=== PATIENT | female | born 1990 | race Caucasian/White ===

== ENCOUNTER 2017-02-15 09:57 | Observation (INO) | payer SELFPAY ==
[2017-02-15 10:02] VITALS: BMI 25.0
--- NOTE | 2017-02-15 11:18 | DR.GENAD ---
HPI - PCP Primary Care Physician: nfd - Complaint/Symptoms Chief Complaint Doctors Comments: Patient is complaining of right lower quadrant pain for the past 2-3 days getting worst today with fever, chills, nausea and vomiting. She denies dysuria, hematuria, magdalena or any recent trauma. LMP 18 January 2017 and she is not on any contraceptives. states she does not have a local doctor. Chief Complaint:: patient stated she started having right sided pain 3 days ago last night it got worse with nausea and chills. - Nurses notes reviewed Nurses Notes Review: Yes - Source History Provided: Patient - Mode of Arrival Mode of Arrival: Ambulatory - Timing Onset of Chief Complaint: 02/13/17 Came on: Gradually - Duration Duration: Constant How lon Duration: Days - Location Location: RLQ tenderness - Severity Severity: Moderate - Modifying Factors Worsens:: movement Improves:: movement PMH - PMH Past Medical History: No Past Surgical History: Yes Surgical History: , Cholecystectomy - Family History History of Family Medical Conditions: No - Social History Does patient currently use any type of tobacco product: No Have you used tobacco products in the last 12 months: No Type of Tobacco Use: None Does any household member use tobacco: No Alcohol Use: None Do you use any recreational Drugs:: No Lives With: Family Lives Where: Home - infectious screening In the last 2 months have you had wt loss of >10#?: NO Have you had fever, night sweats or hemotysis?: No Have you traveled outside the country in the last 6 months?: No Isolation: Standard ROS - Review of Systems Constitutional: No Symptoms Reported, Chills, Fever. negative: See HPI, Diaphoresis, Malaise, Weakness, Irritable, Fatigue, Loss of Appetite, Other Eyes: No Symptoms Reported ENTM: No Symptoms Reported. negative: See HPI, Ear Pain, Ear Discharge, Pulling on Ears, Hearing Loss, Nose Pain, Nose Discharge, Epistaxis, Nose Congestion, Mouth Pain, Mouth Swelling, Loose Teeth, Drooling, Throat Pain, Throat Swelling, Ear Foreign Body Respiratoy: No Symptoms Reported. negative: See HPI, Productive Cough, Non- Productive Cough, Moist Cough, Dry Cough, Hacking Cough, Barking Cough, Brassy Cough, Orthopnea, Short of Breath, Stridor, Wheezing, Hemoptysis, Other Cardiovascular: No Symptoms Reported. negative: See HPI, Chest Pain, Edema, Palpitations, Syncope, Cyanosis, Skin Mottling, Other Gastrointestinal/Abdominal: No Symptoms Reported, Abdominal Pain, Nausea, Vomiting. negative: See HPI, Constipation, Diarrhea, Food Intolerance, Other Genitourinary: No Symptoms Reported. negative: See HPI (nocturia x2), Discharge , Dysuria, Frequency, Hematuria, Pain, Bleeding, Other Neurological: No Symptoms Reported. negative: See HPI, Anxiety, Depressed, Emotional Problems, Headache, Numbness, Paresthesia, Pre-existing Deficit, Seizure, Tingling, Tremors, Weakness, Dizziness, Problems Walking, Speech Problem, Other Musculoskeletal: No Symptoms Reported Integumentary: No Symptoms Reported. negative: See HPI, Change in Color, Change in Hair/Nails, Dryness, Lesions, Lumps, Rash, Itching, Wound, Bruises, Juandice, Other Hematologic/Lymphatic: No Symptoms Reported Endocrine: No Symptoms Reported Psychiatric: No Symptoms Reported PE - Vital Signs Vitals: Temperature 99.9 F Pulse Rate 111 Respiratory Rate 18 Blood Pressure 114/82 O2 Sat by Pulse Oximetry 98 - General Limitations: No Limitations General Appearance: Alert, In Distress (moderate) - Head Head Exam: Normal Inspection, Atraumatic, Normocephalic - Eyes Eye exam: Normal Appearance, PERRL, EOMI. negative: Scleral Icterus, Conjunctival Injection, Nystagmus, Miosis, Mydrasis, Periorbital Swelling, Periorbital Tenderness, Other - ENT ENT Exam: Normal Exam, Normal Oropharynx, Normal External Ear Exam, Mucous Membranes Moist, TM's Normal Bilaterally External Ear Exam: Normal External Inspection TM/Canal Exam: Bilateral Normal Nose Exam: Normal Nose Exam Mouth Exam: Normal Inspection Throat Exam: Normal Inspection. negative: Tonsillar Erythema, Tonsillomegaly, Tonsillar Exudate, R Peritonsillar Mass, L Peritonsillar Mass, Muffled Voice, Other - Neck Neck Exam: Normal Inspection, Full ROM, Trachea Midline. negative: Tenderness, Meningismus, Lymphadenopathy, Thyromegaly, Other - Chest Chest Inspection: Normal Inspection, Symmetric Chest Wall Rise - Respiratory Respiratory Exam: Normal Lung Sounds Bilat Respiratory Exam: Bilateral Clear to Auscultation - Cardiovascular Cardiovascular Exam: Regular Rate, Normal Rhythm, Normal Heart Sounds - Abdominal Exam Abdominal Exam: Normal Inspection, Normal Bowel Sounds, Soft, Tenderness (RLQ tenderness; suprapubic tenderness; healed RUQ surgical scar), Dimnished Bowel Sounds Abdominal Tenderness: RUQ, RLQ, Moderate - Extremities Extremities Exam: Normal Inspection, Full ROM, Normal Capillary Refill. negative: Tenderness, Edema, Joint Swelling, Calf Tenderness, Other - Back Back Exam: Normal Inspection, Full ROM. negative: Tenderness, (R) CVA Tenderness, (L) CVA Tenderness, Muscle Spasm, Paraspinal Tenderness, Vertebral Tenderness, Rashes, (R) Sciatic Notch Tenderness, (L) Sciatic Notch Tendern, (R ) Straight Leg Raise, (L) Straight Leg Raise, Other - Neurologic Neurological Exam: Alert, Oriented X3, CN II-XII Intact, Reflexes Normal. negative: Normal Gait (gait not tested) - Psychiatric Psychiatric Exam: Normal Affect, Normal Mood - Skin Skin Exam: Warm, Dry, Intact, Normal Color Course - Consultation Called: 16:41 Call Returned: 16:41 (Dr. Boothe to admit to hospitalist) Consultation Comments: 1750: Dr. Brunner called and the patient discussed. Will admit to [facility] for evaluation and consult from Dr. Boothe. - Education/Counseling Education/Counseling: Patient, Family Educated On: Treatment, Diagnosis, Prognosis, Needs for Follow Up ROR - Labs Reviewed Laboratory Results Reviewed?: Yes (all labs and x-ray results reviewed and discussed with patient and family) Result Diagrams: 02/15/17 11:15 02/15/17 11:15 Laboratory: WBC 7.5 X10^3/uL (3.6-10.0) 02/15/17 11:15 RBC 4.31 X10^6/uL (3.5-5.4) 02/15/17 11:15 Hgb 12.9 g/dL (12.0-16.0) 02/15/17 11:15 Hct 36.2 % (36.0-47.0) 02/15/17 11:15 MCV 84.1 fL (80.0-100.0) 02/15/17 11:15 MCH 30.0 pg (27.0-34.0) 02/15/17 11:15 MCHC 35.7 g/dL (33.0-35.0) H 02/15/17 11:15 RDW 12.2 % (11.6-16.5) 02/15/17 11:15 Plt Count 154 X10^3/uL (150.0-450.0) 02/15/17 11:15 MPV 8.3 fL (7.4-11.0) 02/15/17 11:15 Neut % 84.3 % (42.0-75.0) H 02/15/17 11:15 Lymph % 9.8 % (21.0-51.0) L 02/15/17 11:15 Free[place] % 5.5 % (0.0-13.0) 02/15/17 11:15 Eos % 0.2 % (0.9-2.9) L 02/15/17 11:15 Baso % 0.2 % (0.2-1.0) 02/15/17 11:15 Neut # 6.3 x10^3/uL (2.2-4.8) H 02/15/17 11:15 Lymph # 0.7 X10^3/uL (1.3-2.9) L 02/15/17 11:15 Freeborn # 0.4 x10^3/uL (0.3-0.8) 02/15/17 11:15 Eos # 0.0 x10^3/uL (0.0-0.2) 02/15/17 11:15 Baso # 0.0 X10^3/uL (0.0-0.1) 02/15/17 11:15 Absolute Nucleated RBC 0.0 /100WBC 02/15/17 11:15 Sodium 139 mmol/L (136-145) 02/15/17 11:15 Corrected Sodium TNP 02/15/17 11:15 Potassium 3.6 mmol/L (3.5-5.1) 02/15/17 11:15 Chloride 104 mmol/L (98-107) 02/15/17 11:15 Carbon Dioxide 27.3 mmol/L (21-32) 02/15/17 11:15 BUN 7 mg/dL (7-18) 02/15/17 11:15 Creatinine 0.75 mg/dL (0.55-1.02) 02/15/17 11:15 Est GFR (MDRD) Af Amer > 60 (>60) 02/15/17 11:15 Est GFR (MDRD) Non-Af > 60 (>60) 02/15/17 11:15 Glucose 89 mg/dL (65-99) 02/15/17 11:15 Calcium 8.5 mg/dL (8.5-10.1) 02/15/17 11:15 Corrected Calcium TNP 02/15/17 11:15 Total Bilirubin 2.00 mg/dL (0.2-1.0) H 02/15/17 11:15 AST 24 Units/L (15-37) 02/15/17 11:15 ALT 34 Units/L (12-78) 02/15/17 11:15 Alkaline Phosphatase 95 Units/L (46-116) 02/15/17 11:15 Total Protein 7.9 g/dL (6.4-8.2) 02/15/17 11:15 Albumin 3.8 g/dL (3.4-5.0) 02/15/17 11:15 Globulin 4.1 g/dL (2.5-4.5) 02/15/17 11:15 Albumin/Globulin Ratio 0.9 Ratio (1.1-2.1) L 02/15/17 11:15 Amylase 20 Units/L (25-115) L 02/15/17 11:15 Lipase 73 Units/L (73-393) 02/15/17 11:15 HCG, Qual Negative <10 mIU/mL 02/15/17 11:15 Specimen Type Clean catch urine 02/15/17 11:33 Urine Color Yellow (YELLOW) 02/15/17 11:33 Urine Appearance Hazy (CLEAR) 02/15/17 11:33 Urine pH 8.0 (5.0 - 8.0) 02/15/17 11:33 Ur Specific [place] 1.010 (1.000-1.030) 02/15/17 11:33 Urine Protein Negative (NEGATIVE) 02/15/17 11:33 Urine Glucose (UA) Negative (NEGATIVE) 02/15/17 11:33 Urine Ketones Negative (NEGATIVE) 02/15/17 11:33 Urine Occult Blood 1+ (NEGATIVE) 02/15/17 11:33 Urine Nitrite Negative (NEGATIVE) 02/15/17 11:33 Urine Bilirubin Negative (NEGATIVE) 02/15/17 11:33 Urine Urobilinogen 1+ (NORMAL) 02/15/17 11:33 Ur Leukocyte Esterase 1+ (NEGATIVE) 02/15/17 11:33 Urine RBC 0-2 /HPF (NEGATIVE) 02/15/17 11:33 Urine WBC 0-2 /HPF (NEGATIVE) 02/15/17 11:33 Ur Squamous Epith Cells Negative /HPF (NEGATIVE) 02/15/17 11:33 Urine Bacteria Trace /HPF (NEGATIVE) 02/15/17 11:33 Ur Culture Indicated? No/not indicated 02/15/17 11:33 H. pylori IgG Antibody Negative (NEGATIVE) 02/15/17 11:15 - XRAY XRAY Interpreted by: Radiologist (CT abdomen: Tubular structure within the right lower quadrant thickened velazquez 7..0 cm findings represent mildly inflamed bordeerl) - Diagnosis Discharge Problem: abdominal pain r/o appendicitis, Probable early appendicitis - Discharge Plan Disposition: 09 ADMITTED INPATIENT Condition: Stable - Follow ups/Referrals Follow ups/Referrals: NFD,None [Primary Care Provider] - 3 days - Instructions
[2017-02-15 11:26] LABS: BASOPHILS % (AUTO) 0.2 % (0.2-1.0); EOSINOPHILS % (AUTO) 0.2 % (0.9-2.9); HEMATOCRIT 36.2 % (36.0-47.0); HEMOGLOBIN 12.9 g/dL (12.0-16.0); LYMPHOCYTES # (AUTO) 0.7 X10^3/uL (1.3-2.9); LYMPHOCYTES % (AUTO) 9.8 % (21.0-51.0); MEAN CORPUSCULAR HGB CONC 35.7 g/dL (33.0-35.0); MEAN CORPUSCULAR VOLUME 84.1 fL (80.0-100.0); MEAN PLATELET VOLUME 8.3 fL (7.4-11.0); MONOCYTES # (AUTO) 0.4 x10^3/uL (0.3-0.8); MONOCYTES % (AUTO) 5.5 % (0.0-13.0); NEUTROPHILS # (AUTO) 6.3 x10^3/uL (2.2-4.8); NEUTROPHILS % (AUTO) 84.3 % (42.0-75.0); PLATELET COUNT 154 X10^3/uL (150.0-450.0); RED BLOOD COUNT 4.31 X10^6/uL (3.5-5.4); RED CELL DISTRIBUTION WIDTH 12.2 % (11.6-16.5); WHITE BLOOD COUNT 7.5 X10^3/uL (3.6-10.0)
[2017-02-15 11:40] LABS: ALANINE AMINOTRANSFERASE 34 Units/L (12-78); ALBUMIN 3.8 g/dL (3.4-5.0); ALKALINE PHOSPHATASE 95 Units/L (46-116); AMYLASE 20 Units/L (25-115); ASPARTATE AMINO TRANSFERASE 24 Units/L (15-37); BLOOD UREA NITROGEN 7 mg/dL (7-18); CALCIUM 8.5 mg/dL (8.5-10.1); CARBON DIOXIDE 27.3 mmol/L (21-32); CHLORIDE 104 mmol/L (98-107); CREATININE 0.75 mg/dL (0.55-1.02); GLUCOSE 89 mg/dL (65-99); LIPASE 73 Units/L (73-393); SODIUM 139 mmol/L (136-145); TOTAL PROTEIN 7.9 g/dL (6.4-8.2); eGFR BLACK RACES > 60 (>60); eGFR NON BLACK RACES > 60 (>60)
[2017-02-15 11:42] LABS: BILIRUBIN,URINE NEGATIVE (NEGATIVE); BLOOD/HEMOGLOBIN,URINE 1+ (NEGATIVE); GLUCOSE, URINE NEGATIVE (NEGATIVE); KETONES,URINE NEGATIVE (NEGATIVE); LEUKOCYTE ESTERASE ,URINE 1+ (NEGATIVE); NITRITES,URINE NEGATIVE (NEGATIVE); PROTEIN,URINE NEGATIVE (NEGATIVE); UROBILINOGEN,URINE 1+ (NORMAL)
[2017-02-15 11:48] LABS: APPEARANCE,URINE HAZY (CLEAR); BACTERIA,URINE TRACE /HPF (NEGATIVE); COLOR,URINE YELLOW (YELLOW); RBC,URINE 0-2 /HPF (NEGATIVE); SQUAMOUS EPITHELIAL CELL,UR NEGATIVE /HPF (NEGATIVE)
[2017-02-15 11:49] LABS: SERUM PREGNANCY TEST, QUAL NEGATIVE <10 mIU/mL
[2017-02-15] MEDS ORDERED: NS 100 ML IV 100 ML IV ONE (13:15)
--- NOTE | 2017-02-15 14:18 | CT ---
HISTORY: Right-sided abdominal pain with nausea and vomiting Study: CT abdomen and pelvis with contrast Comparison: None Technique: Multiple axial images of the abdomen and pelvis were obtained from the lung bases to the pubic symph ysis with the administration of IV contrast. Findings: The visualized portions of the lung bases are unremarkable. The liver, spleen, pancreas, adrenals, and kidneys are unremarkable in appearance. No CT evidence of hydronephrosis is identified . The appendix is not definitely visualized. No significant inflammatory changes are appreciated wit hin the pericecal region. Surgical clips are noted within the gallbladder fossa. The urinary bladder is grossly unremarkable. The uterus is somewhat heterogeneous in appearance which may reflect timin g of the menstrual cycle however underlying fibroids cannot be excluded. A small amount of free flui d is suspected within the pelvis. There is a questionable right ovarian/adnexal cyst. Scattered stoo l and gas are seen throughout the colon to the level of the rectum. IMPRESSION: 1. Nonspecific heterogeneous appearance of the uterus with a questionable right ovarian/adnexal cyst which may be further evaluated with pelvic ultrasound as clinically indicated. 2. Other findings as noted above. Reported By:
[2017-02-15] MEDS ORDERED: DEMEROL INJ IVP ONE (16:10)
[2017-02-15] MEDS ORDERED: ROCEPHIN VIAL 1 GM 1 GM in NS 50 ML IV + SPIKE MINIBAG* 50 ML IV ONE (16:11)
[2017-02-15] MEDS ORDERED: ZOFRAN INJ 4 MG VIAL IVP ONE (16:11)
[2017-02-15] MEDS ORDERED: ZOFRAN INJ 4 MG VIAL ONE (16:26)
[2017-02-15] MEDS ORDERED: DEMEROL INJ ONE (16:27)
[2017-02-15] MEDS ORDERED: ROCEPHIN 1 GM IV PREMIX * OUT OF STOCK 50 ML IV ONE (16:38)
[2017-02-15] MEDS ORDERED: NS 1000 ML 1,000 ML ONE (16:39)
[2017-02-15] MEDS ORDERED: NS 100 ML IV + SPIKE MINIBAG* 100 ML IV ONE (16:39)
[2017-02-15] MEDS ORDERED: ZOSYN VIAL 3.375 GM IV ONE (16:40)
[2017-02-15] MEDS ORDERED: ZOSYN VIAL 3.375 GM 3.375 GM in NS 100 ML IV + SPIKE MINIBAG* 100 ML IV ONE (18:02)
[2017-02-15] MEDS ORDERED: ZOFRAN INJ 4 MG VIAL IVP PRN ×2 (18:04→19:51)
[2017-02-15] MEDS ORDERED: PEPCID 20 MG IV PREMIX* 20 MG/50 ML BAG IV PRN (18:04)
[2017-02-15] MEDS ORDERED: FENTANYL INJ 250 mcg ONE (18:40)
[2017-02-15] MEDS ORDERED: XYLOCAINE-MPF 1% ONE (19:06)
[2017-02-15] MEDS ORDERED: MARCAINE 0.25% WITH EPI IJ ONE (19:06)
[2017-02-15] MEDS: LR 1000 ML IV 1,000 ML IV ONE ×2 (19:35→19:40)
[2017-02-15] MEDS ORDERED: PHENERGAN INJ 25 MG IVP PRN (19:51)
[2017-02-15] MEDS ORDERED: BENADRYL INJ 50 MG VIAL IVP PRN (19:51)
[2017-02-15] MEDS ORDERED: REGLAN INJ 10 MG VIAL IVP PRN (19:51)
[2017-02-15] MEDS ORDERED: DILAUDID INJ IVP PRN (19:51)
[2017-02-15] MEDS: PERCOCET TAB 5/325 MG PO PRN (21:14)
[2017-02-15] MEDS: NS 1000 ML 1,000 ML IV SCH (22:16)
[2017-02-15] MEDS: MORPHINE SULFATE INJ 2 MG IVP PRN (22:17)
[2017-02-16] MEDS: NS 1000 ML 1,000 ML IV SCH ×2 (03:39→11:44)
[2017-02-16] MEDS: MORPHINE SULFATE INJ 2 MG IVP PRN (03:39)
[2017-02-16 06:11] LABS: BLOOD UREA NITROGEN 7 mg/dL (7-18); CALCIUM 8.1 mg/dL (8.5-10.1); CARBON DIOXIDE 28.3 mmol/L (21-32); CHLORIDE 104 mmol/L (98-107); CREATININE 0.82 mg/dL (0.55-1.02); GLUCOSE 76 mg/dL (65-99); SODIUM 139 mmol/L (136-145); eGFR BLACK RACES > 60 (>60); eGFR NON BLACK RACES > 60 (>60)
[2017-02-16 06:23] LABS: BASOPHILS % (AUTO) 0.4 % (0.2-1.0); EOSINOPHILS % (AUTO) 0.2 % (0.9-2.9); HEMATOCRIT 34.1 % (36.0-47.0); LYMPHOCYTES # (AUTO) 0.9 X10^3/uL (1.3-2.9); LYMPHOCYTES % (AUTO) 14.7 % (21.0-51.0); MEAN CORPUSCULAR HEMOGLOBIN 29.9 pg (27.0-34.0); MEAN CORPUSCULAR HGB CONC 35.3 g/dL (33.0-35.0); MEAN CORPUSCULAR VOLUME 84.7 fL (80.0-100.0); MEAN PLATELET VOLUME 8.9 fL (7.4-11.0); MONOCYTES # (AUTO) 0.4 x10^3/uL (0.3-0.8); MONOCYTES % (AUTO) 5.9 % (0.0-13.0); NEUTROPHILS # (AUTO) 4.8 x10^3/uL (2.2-4.8); NEUTROPHILS % (AUTO) 78.8 % (42.0-75.0); PLATELET COUNT 123 X10^3/uL (150.0-450.0); RED BLOOD COUNT 4.03 X10^6/uL (3.5-5.4); RED CELL DISTRIBUTION WIDTH 12.2 % (11.6-16.5)
[2017-02-16] MEDS: PERCOCET TAB 5/325 MG PO PRN (07:03)
--- NOTE | 2017-02-16 09:31 | PCM.PROG ---
Progress Note - Progress Note for Day of Date: 02/16/17 - Subjective Subjective: Tolerating diet. (-) N/V. (+) OOB. RLQ pain resolved. Admits to post-op "soreness". - Past Medical Family Social History Allergies: Allergies No Known Drug Allergies Allergy (Verified 02/15/17 09:58) - Vital Signs and I&O's Vital Signs: Temperature 99.3 F Pulse Rate [Bilateral Radial] 92 Pulse Rate 94 Respiratory Rate 18 Blood Pressure [Left Arm] 113/62 Blood Pressure 116/64 O2 Sat by Pulse Oximetry 97 Intake and Output: Intake & Output 02/13/17 02/14/17 02/15/17 02/16/17 11:59 11:59 11:59 11:59 Intake Total 112 Output Total 350 Balance -238 - Physical Exam Oriented: Normal Eyes: Normal Respiratory: Normal Cardiovascular: Normal Auscultation: Bowel Sounds: Normal Palpation: Normal Tenderness: Diffuse (Approp. TTP ) Skin: Normal (Dressings C/D/I.) Psychiatric: Normal Mood Description: Calm Speech Pattern: Clear, Appropriate - Laboratory and Diagnostics Result Diagrams: 02/16/17 03:33 02/16/17 03:40 Labs: Laboratory WBC 6.0 X10^3/uL (3.6-10.0) 02/16/17 03:33 RBC 4.03 X10^6/uL (3.5-5.4) 02/16/17 03:33 Hgb 12.0 g/dL (12.0-16.0) 02/16/17 03:33 Hct 34.1 % (36.0-47.0) L 02/16/17 03:33 MCV 84.7 fL (80.0-100.0) 02/16/17 03:33 MCH 29.9 pg (27.0-34.0) 02/16/17 03:33 MCHC 35.3 g/dL (33.0-35.0) H 02/16/17 03:33 RDW 12.2 % (11.6-16.5) 02/16/17 03:33 Plt Count 123 X10^3/uL (150.0-450.0) L 02/16/17 03:33 MPV 8.9 fL (7.4-11.0) 02/16/17 03:33 Neut % 78.8 % (42.0-75.0) H 02/16/17 03:33 Lymph % 14.7 % (21.0-51.0) L 02/16/17 03:33 Gordon % 5.9 % (0.0-13.0) 02/16/17 03:33 Eos % 0.2 % (0.9-2.9) L 02/16/17 03:33 Baso % 0.4 % (0.2-1.0) 02/16/17 03:33 Neut # 4.8 x10^3/uL (2.2-4.8) 02/16/17 03:33 Lymph # 0.9 X10^3/uL (1.3-2.9) L 02/16/17 03:33 Gordon # 0.4 x10^3/uL (0.3-0.8) 02/16/17 03:33 Eos # 0.0 x10^3/uL (0.0-0.2) 02/16/17 03:33 Baso # 0.0 X10^3/uL (0.0-0.1) 02/16/17 03:33 Absolute Nucleated RBC 0.0 /100WBC 02/16/17 03:33 Sodium 139 mmol/L (136-145) 02/16/17 03:40 Corrected Sodium TNP 02/16/17 03:40 Potassium 3.6 mmol/L (3.5-5.1) 02/16/17 03:40 Chloride 104 mmol/L (98-107) 02/16/17 03:40 Carbon Dioxide 28.3 mmol/L (21-32) 02/16/17 03:40 BUN 7 mg/dL (7-18) 02/16/17 03:40 Creatinine 0.82 mg/dL (0.55-1.02) 02/16/17 03:40 Est GFR (MDRD) Af Amer > 60 (>60) 02/16/17 03:40 Est GFR (MDRD) Non-Af > 60 (>60) 02/16/17 03:40 Glucose 76 mg/dL (65-99) 02/16/17 03:40 Calcium 8.1 mg/dL (8.5-10.1) L 02/16/17 03:40 Corrected Calcium TNP 02/15/17 11:15 Total Bilirubin 2.00 mg/dL (0.2-1.0) H 02/15/17 11:15 AST 24 Units/L (15-37) 02/15/17 11:15 ALT 34 Units/L (12-78) 02/15/17 11:15 Alkaline Phosphatase 95 Units/L (46-116) 02/15/17 11:15 Total Protein 7.9 g/dL (6.4-8.2) 02/15/17 11:15 Albumin 3.8 g/dL (3.4-5.0) 02/15/17 11:15 Globulin 4.1 g/dL (2.5-4.5) 02/15/17 11:15 Albumin/Globulin Ratio 0.9 Ratio (1.1-2.1) L 02/15/17 11:15 Amylase 20 Units/L (25-115) L 02/15/17 11:15 Lipase 73 Units/L (73-393) 02/15/17 11:15 HCG, Qual Negative <10 mIU/mL 02/15/17 11:15 Specimen Type Clean catch urine 02/15/17 11:33 Urine Color Yellow (YELLOW) 02/15/17 11:33 Urine Appearance Hazy (CLEAR) 02/15/17 11:33 Urine pH 8.0 (5.0 - 8.0) 02/15/17 11:33 Ur Specific Harris 1.010 (1.000-1.030) 02/15/17 11:33 Urine Protein Negative (NEGATIVE) 02/15/17 11:33 Urine Glucose (UA) Negative (NEGATIVE) 02/15/17 11:33 Urine Ketones Negative (NEGATIVE) 02/15/17 11:33 Urine Occult Blood 1+ (NEGATIVE) 02/15/17 11:33 Urine Nitrite Negative (NEGATIVE) 02/15/17 11:33 Urine Bilirubin Negative (NEGATIVE) 02/15/17 11:33 Urine Urobilinogen 1+ (NORMAL) 02/15/17 11:33 Ur Leukocyte Esterase 1+ (NEGATIVE) 02/15/17 11:33 Urine RBC 0-2 /HPF (NEGATIVE) 02/15/17 11:33 Urine WBC 0-2 /HPF (NEGATIVE) 02/15/17 11:33 Ur Squamous Epith Cells Negative /HPF (NEGATIVE) 02/15/17 11:33 Urine Bacteria Trace /HPF (NEGATIVE) 02/15/17 11:33 Ur Culture Indicated? No/not indicated 02/15/17 11:33 H. pylori IgG Antibody Negative (NEGATIVE) 02/15/17 11:15 Tissue Pathology To follow 02/15/17 20:26 - Plan (1) Acute appendicitis Status: Acute Qualifiers: Acute appendicitis type: A Narrative Support Text: POD # 1 lap appy. Pain resolved. AFVSS. Tolerating diet. Stable post-op. Plan: OK discharge from surgery stdpt. Routine post-op care. f/u 1-2 weeks. Recommend limited lifting x 8 weeks.
[2017-02-16 12:42] VITALS: BP 117/65
[2017-02-16] MEDS ORDERED: LTA KIT LIDOCAINE 4% ONE (15:44)
[2017-02-16] MEDS ORDERED: NEOSTIGMINE INJ ONE (15:44)
[2017-02-16] MEDS ORDERED: XYLOCAINE 2 % (PLAIN) ONE (15:44)
[2017-02-16] MEDS ORDERED: ROBINUL ONE (15:44)
[2017-02-16] MEDS ORDERED: ZOFRAN INJ 4 MG VIAL ONE (15:44)
[2017-02-16] MEDS ORDERED: QUELICIN (OR ANECTINE) ONE (15:44)
[2017-02-16] MEDS ORDERED: VERSED ONE (15:44)
[2017-02-16] MEDS ORDERED: SUPRANE IN ONE (15:44)
[2017-02-16] MEDS ORDERED: NORCURON INJ 10 MG VIAL ONE (15:44)
== END 2017-02-16 11:55 | disposition home or self-care (01) ==
LOC: ER 10:08 → MED/SURG 18:11
PROVIDERS: ADMIT Obstetrics & Gynecology Obstetrics; ATTEND Obstetrics & Gynecology Obstetrics
PROC: 0DTJ4ZZ Resection of Appendix, Percutaneous Endoscopic Approach (ICD-10-PCS; principal; 2017-02-15 18:00)
DX: K35.89 Other acute appendicitis (principal); R10.31 Right lower quadrant pain; R11.2 Nausea with vomiting, unspecified
CPT/HCPCS: 36415; 74177; 80048; 80053; 81001; 82150; 83690; 84703; 85025; 86677; 96365; 96367; 96374; 96375; 99284; A4216; A4222; S0020; G0378; J0330; J0696; J2001; J2175; J2250; J2270; J2405; J2543; J2710; J3010; J3490; J7120